=== PATIENT | male | born 1965 | race Caucasian/White ===

== ENCOUNTER 2024-12-13 04:05 | Day surgery (SDC) | payer OTHER ==
[~2024-12-13] VITALS: Ht 180.3 cm; Wt 81.8 kg
[2024-12-13] VITALS (8 sets, daily range): BP systolic 103–172; BP diastolic 74–98
[2024-12-13] MEDS ORDERED: DEXMEDETOMIDINE HCL IN SODIUM 100 ML IV SCH (07:20)
[2024-12-13] MEDS ORDERED: FAMOTIDINE 20 MG/TAB PO PRN (07:30)
[2024-12-13] MEDS ORDERED: CYANOCOBALAMIN 500 MCG/TAB ( B12) PO PRN (07:30)
[2024-12-13] MEDS ORDERED: ALBUTEROL SULFATE 2.5 MG VIAL IN PRN (07:30)
[2024-12-13] MEDS ORDERED: SCOPOLAMINE 1.5 MG DIS TD PRN (07:30)
[2024-12-13] MEDS ORDERED: diazePAM 5 MG/TAB PO PRN ×2 (07:30→08:30)
[2024-12-13] MEDS ORDERED: SODIUM CHLORIDE 0.9% 1,000 ML IV PRN (07:30)
[2024-12-13] MEDS ORDERED: PANTOPRAZOLE SODIUM Sesquihydr 40 MG/TAB PO PRN (07:30)
[2024-12-13] MEDS ORDERED: LACTATED RINGER'S 1,000 ML IV PRN ×2 (07:30→12:15)
[2024-12-13] MEDS ORDERED: cloNIDine HCL 0.1 MG/TAB PO PRN (07:30)
[2024-12-13] MEDS ORDERED: ASCORBIC ACID 4,000 MG in SODIUM CHLORIDE 0.9% 1,000 ML IV SCH (08:00)
[2024-12-13 08:46] LABS: BASO% 0.5 % (0-3); EOS% 2.9 % (0-8); HEMATOCRIT 40.4 % (39.0-50.0); HEMOGLOBIN 13.1 g/dl (14.0-18.0); IMMATURE GRANULOCYTES 0.3 % (0.0-5.0); LYMPH% 42.9 % (15-41); MEAN CELL VOLUME 91.6 fL CALC (80.0-100.0); MEAN CORPUSCULAR HGB 29.7 pG CALC (26.0-32.0); MEAN CORPUSCULAR HGB CONC 32.4 g/dL CAL (32.0-36.0); MONO% 10.3 % (2-13); NEUT# 3.24 thou/uL (1.82-7.42); NEUT% 43.1 % (42-76); RED BLOOD COUNT 4.41 mill/uL (4.70-6.10); RED CELL DISTRI WIDTH 11.7 % (11.5-15.5)
[2024-12-13 09:11] LABS: ALBUMIN 4.3 g/dL (3.2-5.0); BILIRUBIN, TOTAL 0.4 mg/dL (0.2-1.3); CREATININE 0.7 mg/dL (0.7-1.3); POTASSIUM 4.4 mmol/l (3.5-5.1); TOTAL PROTEIN 6.9 g/dL (6.3-8.2)
[2024-12-13] MEDS ORDERED: CYMBALTA30 MG PO (09:27)
[2024-12-13] MEDS ORDERED: BUSPAR30 MG PO (09:28)
[2024-12-13] MEDS ORDERED: METFORMIN HCL1000 MG PO (09:28)
[2024-12-13] MEDS ORDERED: ASPIRIN ADULT L81 M2 PO (09:29)
[2024-12-13] MEDS ORDERED: NICOTINE TRANSDERMAL 21 MG/PATCH TD SCH (12:30)
[2024-12-13] MEDS ORDERED: metFORMIN HYDROCHLORIDE 500 MG/TAB PO SCH (17:30)
[2024-12-13] MEDS ORDERED: diazePAM 5 MG/TAB PO SCH (18:00)
[2024-12-13] MEDS ORDERED: cloNIDine HCL 0.1 MG/TAB PO SCH (18:00)
[2024-12-14] VITALS (184 sets, daily range): BP systolic 110–183; BP diastolic 72–108
[2024-12-14] MEDS ORDERED: SCOPOLAMINE 1.5 MG DIS TD SCH (03:00)
[2024-12-14] MEDS ORDERED: ASPIRIN 81 MG/TAB PO SCH (03:00)
[2024-12-14] MEDS ORDERED: CYANOCOBALAMIN 500 MCG/TAB ( B12) PO SCH (03:00)
[2024-12-14] MEDS ORDERED: busPIRone HCL 5 MG/TAB PO SCH (03:00)
[2024-12-14] MEDS ORDERED: FAMOTIDINE 20 MG/TAB PO SCH (03:00)
[2024-12-14 05:30] LABS: BASO% 0.7 % (0-3); EOS% 2.3 % (0-8); HEMATOCRIT 38.3 % (39.0-50.0); HEMOGLOBIN 12.7 g/dl (14.0-18.0); IMMATURE GRANULOCYTES 0.2 % (0.0-5.0); LYMPH% 36.4 % (15-41); MEAN CELL VOLUME 90.3 fL CALC (80.0-100.0); MEAN CORPUSCULAR HGB CONC 33.2 g/dL CAL (32.0-36.0); MONO% 8.1 % (2-13); NEUT# 3.22 thou/uL (1.82-7.42); NEUT% 52.3 % (42-76); RED BLOOD COUNT 4.24 mill/uL (4.70-6.10); RED CELL DISTRI WIDTH 11.8 % (11.5-15.5)
[2024-12-14 05:51] LABS: ALBUMIN 3.8 g/dL (3.2-5.0); BILIRUBIN, TOTAL 0.4 mg/dL (0.2-1.3); CREATININE 0.6 mg/dL (0.7-1.3); POTASSIUM 4.1 mmol/l (3.5-5.1); TOTAL PROTEIN 6.1 g/dL (6.3-8.2)
[2024-12-14] MEDS ORDERED: PANTOPRAZOLE SODIUM Sesquihydr 40 MG/TAB PO SCH (06:00)
[2024-12-14] MEDS ORDERED: ALBUTEROL SULFATE 2.5 MG VIAL IN SCH (06:00)
[2024-12-14] MEDS ORDERED: PHENYLEPHRINE HCL 10 MG in SODIUM CHLORIDE 0.9% 250 ML IV PRN (06:25)
[2024-12-14] MEDS ORDERED: SODIUM CHLORIDE 0.9% 100 ML IV ONE (06:54)
[2024-12-14] MEDS ORDERED: [UNRECOGNIZED DRUG - OTHER] IV ONE (06:54)
[2024-12-14] MEDS ORDERED: STERILE WATER FOR IRRIGATION 1,000 ML BTL IR PRN (07:00)
[2024-12-14] MEDS ORDERED: ONDANSETRON HCl 4 MG/2 ML SDV IV PRN ×3 (07:00→19:00)
[2024-12-14] MEDS ORDERED: MAGNESIUM SULFATE HEPTAHYDRATE 100 ML IV PRN (07:00)
[2024-12-14] MEDS ORDERED: SODIUM CHLORIDE 0.9% 1,000 ML IV PRN ×2 (07:00→14:30)
[2024-12-14] MEDS ORDERED: LIDOCAINE HCL 1% (10MG/ML) 100 MG/10 ML MDV VT PRN ×2 (07:00)
[2024-12-14] MEDS ORDERED: ASCORBIC ACID 4,000 MG in SODIUM CHLORIDE 0.9% 1,000 ML IV SCH (07:00)
[2024-12-14] MEDS ORDERED: THIAMINE HCL 100 MG/ML 2ML VIAL IV PRN (07:00)
[2024-12-14] MEDS ORDERED: PROPOFOL 10 MG/ML 100ML VIAL IV PRN (07:00)
[2024-12-14] MEDS ORDERED: cloNIDine HYDROCHLORIDE 100 MCG/ML 10 ML INJ IV PRN (07:00)
[2024-12-14] MEDS ORDERED: OCTREOTIDE ACETATE 100 MCG/VIAL SDV SC PRN (07:00)
[2024-12-14] MEDS ORDERED: PROPOFOL 100 ML IV PRN (07:00)
[2024-12-14] MEDS ORDERED: MIDAZOLAM HCL 2 MG/2 ML VIAL IV PRN ×3 (07:00→14:30)
[2024-12-14] MEDS ORDERED: ROCURONIUM BROMIDE 10 MG/ML 5 ML VIAL IV PRN (07:00)
[2024-12-14] MEDS ORDERED: DEXMEDETOMIDINE HCL IN SODIUM 100 ML IV PRN (07:00)
[2024-12-14] MEDS ORDERED: POTASSIUM CHLORIDE 20 MEQ/100 ML BAG IV PRN (07:00)
[2024-12-14] MEDS ORDERED: LIDOCAINE HCL 1% (10MG/ML) 100 MG/10 ML MDV IV PRN (07:00)
[2024-12-14] MEDS ORDERED: diazePAM 5 MG/TAB VT PRN (07:00)
[2024-12-14] MEDS ORDERED: NALTREXONE HCL 50 MG/TAB VT PRN (07:00)
[2024-12-14] MEDS ORDERED: cloNIDine HCL 0.1 MG/TAB VT PRN (07:00)
[2024-12-14] MEDS ORDERED: DiphenhydrAMINE HCL 50 MG/ML SDV IV PRN (07:00)
[2024-12-14] MEDS ORDERED: LACTATED RINGER'S 1,000 ML IV PRN (07:00)
[2024-12-14] MEDS ORDERED: SUCCINYLCHOLINE CHLORIDE 20 MG/ML 10ML VIAL IV PRN (07:00)
[2024-12-14] MEDS ORDERED: hydrALAZINE HCL 20 MG/ML VIAL(1 ML) IV ONE (07:45)
[2024-12-14] MEDS ORDERED: METOPROLOL TARTRATE 5 MG/5 ML VIAL IV ONE (08:00)
[2024-12-14] MEDS ORDERED: LABETALOL HCL 100 MG/20 ML VIAL IV ONE (08:00)
[2024-12-14] MEDS ORDERED: NALTREXONE50 MG PO (09:18)
[2024-12-14] MEDS ORDERED: CLONIDINE0.1 MG PO (09:19)
[2024-12-14] MEDS ORDERED: KLONOPIN2 MG PO (09:22)
[2024-12-14] MEDS ORDERED: ACETAMINOPHEN 1,000 MG/100 ML VIAL IV PRN (19:00)
[2024-12-14] MEDS ORDERED: HALOPERIDOL LACTATE 5 MG/ML SDV IV PRN (19:00)
[2024-12-14] MEDS ORDERED: KETOROLAC TROMETHAMINE 30 MG/ML SDV IV PRN (19:00)
[2024-12-14] MEDS ORDERED: PROMETHAZINE HCL 25 MG in SODIUM CHLORIDE 0.9% 50 ML IV PRN (19:00)
[2024-12-14] MEDS ORDERED: ACETAMINOPHEN 500 MG TAB PO PRN (19:00)
[2024-12-14] MEDS ORDERED: PROMETHAZINE HCL 12.5 MG in SODIUM CHLORIDE 0.9% 50 ML IV PRN (19:00)
[2024-12-14] MEDS ORDERED: diazePAM 5 MG/TAB PO SCH (20:14)
[2024-12-14] MEDS ORDERED: PATIENT' OWN MED CONTROLLED 1 EA DOSE IV PRN (21:00)
[2024-12-14] MEDS ORDERED: cloNIDine HCL 0.1 MG/TAB PO SCH ×2 (21:30→23:00)
[2024-12-14] MEDS ORDERED: clonazePAM 1 MG/TAB PO PRN (23:00)
[2024-12-15 02:58] VITALS: BP 143/84
[2024-12-15] MEDS ORDERED: cloNIDine HCL 0.1 MG/TAB PO PRN (04:00)
[2024-12-15] MEDS ORDERED: NALTREXONE HCL 50 MG/TAB PO SCH ×2 (04:00→08:00)
[2024-12-15] MEDS ORDERED: clonazePAM 1 MG/TAB PO PRN ×2 (04:00→08:00)
[2024-12-15 07:27] VITALS: BP 154/87
[2024-12-15] MEDS ORDERED: ACETAMINOPHEN 325 MG/TAB PO SCH (08:00)
[2024-12-15] MEDS ORDERED: PANTOPRAZOLE SODIUM Sesquihydr 40 MG/TAB PO SCH (08:00)
[2024-12-15] MEDS ORDERED: cloNIDine HCL 0.1 MG/TAB PO SCH ×3 (08:00→23:00)
[2024-12-15] MEDS ORDERED: ACETAMINOPHEN 500 MG TAB PO PRN (09:00)
[2024-12-15] MEDS ORDERED: Cholecalciferol 2,000 UNIT/TAB PO PRN (09:00)
[2024-12-15] MEDS ORDERED: MAGNESIUM OXIDE 400 MG/TAB PO PRN (09:00)
[2024-12-15] MEDS ORDERED: diazePAM 5 MG/TAB PO SCH (12:00)
== END 2024-12-15 13:02 | disposition home or self-care (01) | DRG 897 ==
LOC: MS2 04:05 → ANR 04:05 → MS2 04:25 → ANR 08:00 → MS2 12-14 07:05 → ANR 12-15 13:02
PROVIDERS: ATTEND Anesthesiology
DX: F11.20 Opioid dependence, uncomplicated (principal); I10 Essential (primary) hypertension; I25.10 Atherosclerotic heart disease of native coronary artery without angina pectoris
CPT/HCPCS: J1100; J1200; J1920; J2354; J2405; J2704; J3411; J3475; J3480; J3490